=== PATIENT | female | born 1965 | race American Indian/Alaskan Native ===

== ENCOUNTER 2019-02-20 12:35 | Emergency (ER) | payer SELFPAY ==
[2019-02-20 12:48] VITALS: BP 196/118
--- NOTE | 2019-02-20 12:49 | Emergency Department Report ---
Blank Doc - Documentation Documentation: This is a 53-year-old female that presents with Suboxone withdraw. Patient de nies any SI/HI. Patient stated has weakness and tremors. stated has been out of it for 1 week. Denies any SI/HI. This initial assessment/diagnostic orders/clinical plan/treatment(s) is/are subject to change based on patient's health status, clinical progression and re- assessment by fellow clinical providers in the ED. Further treatment and workup at subsequent clinical providers discretion. Patient/guardians urged not to elope from the ED as their condition may be serious if not clinically assessed and managed. Initial orders include: 1- Patient sent to MAIN for further evaluation and treatment 2- labs 3- UA
[2019-02-20 13:38] LABS: Amorphous Crystals,Urine 1+; Bilirubin,Urine NEG (Negative); Blood,Urine NEG (Negative); Color,Urine Yellow (Yellow); Mucus,Urine 2+ /HPF; Protein,Urine <15 mg/dL mg/dL (Negative); Urobilinogen,Urine < 2.0 mg/dL (<2.0)
[2019-02-20 13:40] LABS: Hematocrit 42.2 % (30.3-42.9); Hemoglobin 13.8 gm/dl (10.1-14.3); Mean Corpuscular HGB Conc 33 % (30-34); Mean Corpuscular Volume 84 fl (79-97); Platelet Count 390 K/mm3 (140-440); Red Blood Count 5.03 M/mm3 (3.65-5.03); Red Cell Distribution Width 14.1 % (13.2-15.2)
[2019-02-20 13:45] LABS: Amphetamine Screen,Urine PRESUMPTIVE NEGATIVE; Cannabinoid Screen,Urine PRESUMPTIVE NEGATIVE; Cocaine Screen,Urine PRESUMPTIVE NEGATIVE; Methadone Screen,Urine PRESUMPTIVE NEGATIVE; Opiate Screen,Urine PRESUMPTIVE NEGATIVE
[2019-02-20 14:05] LABS: Benzodiazepines Screen,Urine PRESUMPTIVE POSITIVE
[2019-02-20] MEDS ORDERED: CATAPRES PO ONE (14:38)
[2019-02-20] MEDS ORDERED: ZOFRAN ODT PO ONE (14:38)
--- NOTE | 2019-02-20 14:57 | Emergency Department Report ---
ED General Adult HPI - General Chief complaint: Medical Clearance Stated complaint: MH Time Seen by Provider: 02/20/19 12:47 Source: patient Mode of arrival: Ambulatory Limitations: No Limitations - History of Present Illness Initial comments: The patient presents to the emergency department with a chief complaint of nausea and not feeling well. Patient states that she was opioid abuser and was started on Suboxone 3 months ago and ran out last week and a since that time has had withdrawal symptoms which include nausea, vomiting, jitteriness. Patient denies chest pain, shortness breath, or double pain. -: Gradual Improves with: none Worsens with: none Associated Symptoms: denies other symptoms Treatments Prior to Arrival: none - Related Data Home Medications Medication Instructions Recorded Confirmed Last Taken amLODIPine [Norvasc] 10 mg PO DAILY 07/14/13 07/20/18 01/02/15 14:00 Previous Rx's Medication Instructions Recorded Last Taken Type cloNIDine-TTS PATCH [Catapres-Tts 0.1 mg TD Q7D #1 patch 02/20/19 Unknown Rx 0.1MG Patch] Allergies Allergy/AdvReac Type Severity Reaction Status Date / Time NSAIDS (Non-Steroidal Allergy Hives Verified 02/16/15 13:41 Anti-Inflamma aspirin AdvReac Rash Verified 02/16/15 13:41 ED Review of Systems ROS: Stated complaint: MH Other details as noted in HPI Comment: All other systems reviewed and negative Constitutional: denies: chills, fever Eyes: denies: eye pain, eye discharge, vision change ENT: denies: ear pain, throat pain Respiratory: denies: cough, shortness of breath, wheezing Cardiovascular: denies: chest pain, palpitations Endocrine: no symptoms reported Gastrointestinal: nausea. denies: abdominal pain, diarrhea Genitourinary: denies: urgency, dysuria, discharge Musculoskeletal: denies: back pain, joint swelling, arthralgia Skin: denies: rash, lesions Neurological: denies: headache, weakness, paresthesias Psychiatric: denies: anxiety, depression Hematological/Lymphatic: denies: easy bleeding, easy bruising ED Past Medical Hx - Past Medical History Previous Medical History?: Yes Hx Hypertension: Yes Additional medical history: Uterine fibroids(chronic abdominal pain). Ovarian cysts. States diagnosed with "colon ulcers and infection". - Surgical History Past Surgical History?: Yes Additional Surgical History: ectopic , tube excised; uterine myomectomy x 2 - Social History Smoking Status: Current Every Day Smoker Substance Use Type: Alcohol - Medications Home Medications: Home Medications Medication Instructions Recorded Confirmed Last Taken Type amLODIPine [Norvasc] 10 mg PO DAILY 07/14/13 07/20/18 01/02/15 14:00 History cloNIDine-TTS PATCH [Catapres-Tts 0.1 mg TD Q7D #1 patch 02/20/19 Unknown Rx 0.1MG Patch] ED Physical Exam - General Limitations: No Limitations General appearance: alert, in no apparent distress, other (anxious) - Head Head exam: Present: atraumatic, normocephalic - Eye Eye exam: Present: normal appearance. Absent: PERRL, EOMI - ENT ENT exam: Present: mucous membranes moist - Neck Neck exam: Present: normal inspection - Respiratory Respiratory exam: Present: normal lung sounds bilaterally. Absent: respiratory distress - Cardiovascular Cardiovascular Exam: Present: regular rate, normal rhythm. Absent: systolic murmur, diastolic murmur, rubs, gallop - GI/Abdominal GI/Abdominal exam: Present: soft, normal bowel sounds - Extremities Exam Extremities exam: Present: normal inspection - Back Exam Back exam: Present: normal inspection - Neurological Exam Neurological exam: Present: alert, oriented X3, CN II-XII intact. Absent: motor sensory deficit - Psychiatric Psychiatric exam: Present: normal affect, normal mood - Skin Skin exam: Present: warm, dry, intact, normal color. Absent: rash ED Course Vital Signs 02/20/19 12:47 Temperature 98.7 F Pulse Rate 107 H Respiratory 16 Rate Blood Pressure 196/118 O2 Sat by Pulse 98 Oximetry ED Medical Decision Making - Lab Data Result diagrams: 02/20/19 13:10 Lab Results 02/20/19 02/20/19 02/20/19 Range/Units 13:10 13:11 13:11 WBC 9.2 (4.5-11.0) K/mm3 RBC 5.03 (3.65-5.03) M/mm3 Hgb 13.8 (10.1-14.3) gm/dl Hct 42.2 (30.3-42.9) % MCV 84 (79-97) fl MCH 28 (28-32) pg MCHC 33 (30-34) % RDW 14.1 (13.2-15.2) % Plt Count 390 (140-440) K/mm3 Urine Color Yellow (Yellow) Urine Turbidity Turbid (Clear) Urine pH 5.0 (5.0-7.0) Ur Specific [place] 1.025 (1.003-1.030) Urine Protein <15 mg/dl (Negative) mg/dL Urine Glucose (UA) Neg (Negative) mg/dL Urine Ketones Neg (Negative) mg/dL Urine Blood Neg (Negative) Urine Nitrite Neg (Negative) Urine Bilirubin Neg (Negative) Urine Urobilinogen < 2.0 (<2.0) mg/dL Ur Leukocyte Esterase Sm (Negative) Urine WBC (Auto) 12.0 H (0.0-6.0) /HPF Urine RBC (Auto) 5.0 (0.0-6.0) /HPF U Epithel Cells (Auto) 12.0 (0-13.0) /HPF Amorphous Crystals 1+ Urine Mucus 2+ /HPF Urine Opiates Screen Presumptive negative Urine Methadone Screen Presumptive negative Ur Barbiturates Screen Presumptive negative Ur Phencyclidine Scrn Presumptive negative Ur Amphetamines Screen Presumptive negative U Benzodiazepines Scrn Presumptive positive Urine Cocaine Screen Presumptive negative U Marijuana (THC) Screen Presumptive negative Drugs of Abuse Note Disclamer - Radiology Data Radiology results: report reviewed - Medical Decision Making Discussed with patient that we'll use Catapres for symptom relief Labs reviewed urinalysis consistent with a dirty catch Critical care attestation.: If time is entered above; I have spent that time in minutes in the direct care of this critically ill patient, excluding procedure time. ED Disposition Clinical Impression: Acute opioid withdrawal Disposition: DC-01 TO HOME OR SELFCARE Is pt being admited?: No Does the pt Need Aspirin: No Condition: Stable Instructions: Opioid Withdrawal (ED) Additional Instructions: Return if worse Prescriptions: cloNIDine-TTS PATCH [Catapres-Tts 0.1MG Patch] 0.1 mg TD Q7D #1 patch Referrals: [facility], [Provider Group] - 3-5 Days [facility] [Provider Group] - 3-5 Days Time of Disposition: 14:57
[2019-02-20 14:58] LABS: Platelet Estimate Consistent w Auto; RBC Morphology Normal; Total Cells Counted 100
[2019-02-20 15:08] LABS: Alanine Aminotransferase 7 units/L (7-56); Albumin 4.2 g/dL (3.9-5); BUN/Creatinine Ratio 15; Blood Urea Nitrogen 17 mg/dL (7-17); Calcium 9.7 mg/dL (8.4-10.2); Hemolysis Index 3
== END 2019-02-20 15:43 | disposition home or self-care (01) ==
LOC: EEVIPCON 12:35 → ED 12:35
DX: F11.23 Opioid dependence with withdrawal (principal); I10 Essential (primary) hypertension; D25.9 Leiomyoma of uterus, unspecified; Z98.890 Other specified postprocedural states; F17.200 Nicotine dependence, unspecified, uncomplicated; Z88.6 Allergy status to analgesic agent
CPT/HCPCS: 36415; 80053; 80307; 81001; 83690; 85007; 85025; 87086; G0480; 80320; Q0162

== ENCOUNTER 2021-10-23 20:59 | Emergency (ER) | payer SELFPAY ==
[2021-10-24 00:30] LABS: Bilirubin,Urine NEG (Negative); Blood,Urine NEG (Negative); Color,Urine Yellow (Yellow); Mucus,Urine FEW /HPF; Protein,Urine <15 mg/dL mg/dL (Negative); Urobilinogen,Urine < 2.0 mg/dL (<2.0)
[2021-10-24 00:40] LABS: Basophils # (Auto) 0.1 K/mm3 (0.0-0.1); Basophils % (Auto) 0.6 % (0.0-1.8); Eosinophils % (Auto) 0.5 % (0.0-4.3); Hematocrit 41.8 % (30.3-42.9); Hemoglobin 14.1 gm/dl (10.1-14.3); Lymphocytes # (Auto) 2.3 K/mm3 (1.2-5.4); Lymphocytes % (Auto) 27.8 % (13.4-35.0); Mean Corpuscular HGB Conc 34 % (30-34); Mean Corpuscular Volume 89 fl (79-97); Monocytes # (Auto) 0.5 K/mm3 (0.0-0.8); Monocytes % (Auto) 5.7 % (0.0-7.3); Platelet Count 400 K/mm3 (140-440); Red Blood Count 4.68 M/mm3 (3.65-5.03); Red Cell Distribution Width 13.6 % (13.2-15.2)
[2021-10-24 00:46] LABS: BUN/Creatinine Ratio 14; Blood Urea Nitrogen 14 mg/dL (7-17); Calcium 9.1 mg/dL (8.4-10.2); Hemolysis Index 9
[2021-10-24 00:52] LABS: Amphetamine Screen,Urine PRESUMPTIVE NEGATIVE; Benzodiazepines Screen,Urine PRESUMPTIVE NEGATIVE; Cannabinoid Screen,Urine PRESUMPTIVE NEGATIVE; Cocaine Screen,Urine PRESUMPTIVE NEGATIVE; Methadone Screen,Urine PRESUMPTIVE NEGATIVE; Opiate Screen,Urine PRESUMPTIVE NEGATIVE
--- NOTE | 2021-10-24 01:36 | Emergency Department Report ---
ED Psych HPI - General Chief Complaint: Psych Stated Complaint: ANXIETY/PANIC ATTACK Time Seen by Provider: 10/23/21 23:58 Source: patient Mode of arrival: Ambulatory Limitations: No Limitations - History of Present Illness Initial Comments: Reporting anxiety and suicidal thoughts today. Has plans to cut wrists and or over dose on pills. MD Complaint: suicidal ideation, feels depressed -: hour(s) Associated Psychiatric Symptoms: depression, suicidal ideation History of same: Yes Quality: constant Improves With: none Worsens With: none Associated Symptoms: denies: denies other symptoms, confusion, headache - Related Data Home Medications Medication Instructions Recorded Confirmed Last Taken amLODIPine [Norvasc] 10 mg PO DAILY 07/14/13 07/20/18 01/02/15 14:00 Previous Rx's Medication Instructions Recorded Last Taken Type Ondansetron [Zofran Odt] 4 mg PO Q4HR PRN #20 tab.rapdis 02/20/19 Unknown Rx cloNIDine-TTS PATCH [Catapres-Tts 0.1 mg TD Q7D #1 patch 02/20/19 Unknown Rx 0.1MG Patch] Escitalopram [Lexapro] 10 mg PO DAILY #30 tablet 10/24/21 Unknown Rx busPIRone [Buspar] 10 mg PO BID #60 tab 10/24/21 Unknown Rx Allergies Allergy/AdvReac Type Severity Reaction Status Date / Time NSAIDS (Non-Steroidal Allergy Hives Verified 02/16/15 13:41 Anti-Inflamma aspirin AdvReac Rash Verified 02/16/15 13:41 ED Review of Systems ROS: Stated complaint: ANXIETY/PANIC ATTACK Other details as noted in HPI Constitutional: denies: chills, fever Eyes: denies: eye pain, eye discharge, vision change ENT: denies: ear pain, throat pain Respiratory: denies: cough, shortness of breath, wheezing Cardiovascular: denies: chest pain, palpitations Endocrine: no symptoms reported Gastrointestinal: denies: abdominal pain, nausea, diarrhea Genitourinary: denies: urgency, dysuria, discharge Musculoskeletal: denies: back pain, joint swelling, arthralgia Skin: denies: rash, lesions Neurological: denies: headache, weakness, paresthesias Psychiatric: denies: anxiety, depression Hematological/Lymphatic: denies: easy bleeding, easy bruising ED Past Medical Hx - Past Medical History Previous Medical History?: Yes Hx Hypertension: Yes Additional medical history: Uterine fibroids(chronic abdominal pain). Ovarian cysts. States diagnosed with "colon ulcers and infection". - Surgical History Past Surgical History?: Yes Additional Surgical History: ectopic , tube excised; uterine myomectomy x 2 - Social History Smoking Status: Never Smoker Substance Use Type: None - Medications Home Medications: Home Medications Medication Instructions Recorded Confirmed Last Taken Type amLODIPine [Norvasc] 10 mg PO DAILY 07/14/13 07/20/18 01/02/15 14:00 History Ondansetron [Zofran Odt] 4 mg PO Q4HR PRN #20 tab.rapdis 02/20/19 Unknown Rx cloNIDine-TTS PATCH [Catapres-Tts 0.1 mg TD Q7D #1 patch 02/20/19 Unknown Rx 0.1MG Patch] Escitalopram [Lexapro] 10 mg PO DAILY #30 tablet 10/24/21 Unknown Rx busPIRone [Buspar] 10 mg PO BID #60 tab 10/24/21 Unknown Rx ED Physical Exam - General Limitations: No Limitations General appearance: alert, in no apparent distress - Head Head exam: Present: atraumatic, normocephalic - Eye Eye exam: Present: normal appearance - ENT ENT exam: Present: mucous membranes moist - Neck Neck exam: Present: normal inspection - Respiratory Respiratory exam: Present: normal lung sounds bilaterally. Absent: respiratory distress - Cardiovascular Cardiovascular Exam: Present: regular rate, normal rhythm. Absent: systolic murmur, diastolic murmur, rubs, gallop - GI/Abdominal GI/Abdominal exam: Present: soft, normal bowel sounds - Extremities Exam Extremities exam: Present: normal inspection - Back Exam Back exam: Present: normal inspection - Neurological Exam Neurological exam: Present: alert, oriented X3 - Psychiatric Psychiatric exam: Present: depressed, anxious, suicidal ideation - Skin Skin exam: Present: warm, dry, intact, normal color. Absent: rash ED Course Vital Signs 10/23/21 10/24/21 10/24/21 21:30 03:48 04:00 Temperature 99.2 F 97.7 F Pulse Rate 91 H 87 Respiratory 18 18 Rate Blood Pressure 125/73 Blood Pressure 112/71 [Right] O2 Sat by Pulse 98 100 99 Oximetry 10/24/21 10:12 Temperature Pulse Rate Respiratory Rate Blood Pressure Blood Pressure [Right] O2 Sat by Pulse 100 Oximetry ED Medical Decision Making - Lab Data Result diagrams: 10/24/21 00:06 10/24/21 00:06 - Medical Decision Making medically cleared 1013 for psych assessment Critical care attestation.: If time is entered above; I have spent that time in minutes in the direct care of this critically ill patient, excluding procedure time. ED Disposition Clinical Impression: Depression, Suicidal ideation Disposition: HOME / SELF CARE / HOMELESS Is pt being admited?: No Does the pt Need Aspirin: No Condition: Stable Instructions: Suicidal Feelings: How to Help Yourself Additional Instructions: Follow-up as directed by behavioral health. Return for problems. See primary care physician. Prescriptions: busPIRone [Buspar] 10 mg PO BID #60 tab Escitalopram [Lexapro] 10 mg PO DAILY #30 tablet Referrals: DENNIS AN MD [Primary Care Provider] - 3-5 Days
[2021-10-24 04:05] VITALS: BP 112/71
[2021-10-24] MEDS ORDERED: diphenhydrAMINE 25 MG CAP PO ONE (04:55)
--- NOTE | 2021-10-24 09:07 | Emergency Department Report ---
Blank Doc - Documentation Documentation: There were no events throughout the night. Labs have been reviewed. Psychiat tirso disposition is currently pending.
--- NOTE | 2021-10-24 11:00 | Consultation ---
History of Present Illness - Reason for Consult Consult date: 10/24/21 Reason for consult: anxiety/panic attacks - History of Present Psychiatric Illness HPI: Reporting anxiety and suicidal thoughts today. Has plans to cut wrists and or over dose on pills. The patient was seen today. She is a/o x 3. She says she came in for "really bad anxiety and panic attacks." The patient says "when it happens I can't breath, and my heart starts racing." She says she reported that she was suicidal earlier when she came in. The patient says "when I start having this bad anxiety I start thinking that maybe I'm better off then to deal with this anxiety." The p atient denies SI/HI at present. She says "that has passed now. It's just these panic attacks, but I'm not suicidal." She says she has a lot going on at home. The patient says she was at [facility] for 2 weeks last month. She says she was on Zoloft but it gave her a bad headache. The patient says Vistaril doesn't work for her anxiety. She denies hallucinations of any kind. The patient denies any illicit drug use, alcohol or nicotine. PAST PSYCHIATRIC HISTORY Diagnoses: Anxiety disorder, depression Suicide attempts or Self-harm behavior: Denies Prior psychiatric hospitalizations: Yes Substance Abuse history: Denies Previous psychiatric medications tried: Zoloft, vistaril Outpatient treatment: Yes PAST MEDICAL HISTORY: None reported Family Psychiatric History: None reported or documented SOCIAL HISTORY Living arrangement: alone Marital status: Single Employment status: Unemployed REVIEW OF SYSTEMS Constitutional: Negative for weight loss ENT: Negative for stridor Respiratory: Negative for cough or hemoptysis All other systems reviewed and are negative MENTAL STATUS EXAMINATION General Appearance and Behavior: Age appropriate, good hygiene, wearing appropriate clothes, good eye contact, anxious, cooperative, polite Cooperation: Participating/engaged, but Guarded Psychomotor Behavior: Psychomotor normal Mood: Anxious Affect and affective range: congruent with stated mood Thought Process: goal directed Thought Content: None Speech: normal tone and pace Suicidal Ideation: Denies Homicidal Ideation: Denies Hallucinations: Denies Delusions: None elicited Impulse Control: Limited Insight and Judgment: Limited insight and judgment Memory: Normal Attention: Attentive Orientation: Alert, oriented Assessment and Plan Generalized Anxiety Disorder Panic Disorder Treatment Plan d/c 1013 Buspar 10mg po BID Lexapro 10mg po daily Sitter: per pimary Medical: Per primary Disposition: Do not recommend acute psychiatric inpatient treatment Will sign off. Thanks. Case staffed with Dr. Salcedo Medications and Allergies Allergies Allergy/AdvReac Type Severity Reaction Status Date / Time NSAIDS (Non-Steroidal Allergy Hives Verified 02/16/15 13:41 Anti-Inflamma aspirin AdvReac Rash Verified 02/16/15 13:41 Home Medications Medication Instructions Recorded Confirmed Last Taken Type amLODIPine [Norvasc] 10 mg PO DAILY 07/14/13 07/20/18 01/02/15 14:00 History Ondansetron [Zofran Odt] 4 mg PO Q4HR PRN #20 tab.rapdis 02/20/19 Unknown Rx cloNIDine-TTS PATCH [Catapres-Tts 0.1 mg TD Q7D #1 patch 02/20/19 Unknown Rx 0.1MG Patch] Escitalopram [Lexapro] 10 mg PO DAILY #30 tablet 10/24/21 Unknown Rx busPIRone [Buspar] 10 mg PO BID #60 tab 10/24/21 Unknown Rx Mental Status Exam - Vital signs Last Vital Signs Temp 97.7 F 10/24/21 03:48 Pulse 87 10/24/21 03:48 Resp 18 10/24/21 03:48 BP 112/71 10/24/21 03:48 Pulse Ox 100 10/24/21 10:12 Results Result Diagrams: 10/24/21 00:06 10/24/21 00:06 Abnormal lab results 10/24/21 10/24/21 10/24/21 Range/Units 00:06 00:06 00:06 Glucose 102 H (65-100) mg/dL Salicylates < 0.3 L (2.8-20.0) mg/dL Acetaminophen 5.0 L (10.0-30.0) ug/mL All other labs normal.
[2021-10-24] MEDS ORDERED: busPIRone 10 MG TAB PO SCH (12:00)
[2021-10-24] MEDS ORDERED: ESCITALOPRAM 10 MG TAB PO SCH (12:00)
== END 2021-10-24 12:11 | disposition home or self-care (01) ==
LOC: ED 20:59
DX: F32.A Depression, unspecified (principal); R45.851 Suicidal ideations; Z20.822 Contact with and (suspected) exposure to COVID-19; Z88.6 Allergy status to analgesic agent; Z88.1 Allergy status to other antibiotic agents; I10 Essential (primary) hypertension
CPT/HCPCS: 36415; 80048; 80307; 81001; 85025; 99284; U0003; 80320; G0480